=== PATIENT | female | born 1955 | race Caucasian/White ===

== ENCOUNTER 2018-07-05 10:01 | Emergency (ER) | payer BC ==
[2018-07-05 11:00] VITALS: BP 126/67
--- NOTE | 2018-07-05 11:18 | UC ---
Throat Pain/Nasal Will HPI - HPI Summary HPI Summary: 62 yo female presents with cough and post nasal drip over the last 2 days. She says that yesterday she developed fatigue, body aches, and chills - but feels better today. She has not taken anything OTC for her symptoms. Denies fever, sore throat, SOB, chest pain, abdominal pain, n/v. - History of Current Complaint Chief Complaint: UCRespiratory Stated Complaint: COUGH,CONGESTION,ACHY,HEADACHE Time Seen by Provider: 07/05/18 11:18 Hx Obtained From: Patient Pain Intensity: 0 Cough: Nonproductive - Allergies/Home Medications Allergies/Adverse Reactions: Allergies Allergy/AdvReac Type Severity Reaction Status Date / Time Penicillins Allergy Hives Verified 07/05/18 10:51 Home Medications: Home Medications Atorvastatin* [Lipitor*] 10 mg PO SEE INSTRUCTIONS 07/05/18 [History Confirmed 07/05/18] Calcium Carbonate [Calcium] 500 mg PO DAILY 07/05/18 [History Confirmed 07/05/18 ] Levothyroxine TAB* [Synthroid TAB*] 88 mcg PO DAILY 07/05/18 [History Confirmed 07/05/18] Multivitamin [Multivitamins] 1 cap PO DAILY 07/05/18 [History Confirmed 07/05/18 ] Niacin 500 mg PO DAILY 07/05/18 [History Confirmed 07/05/18] Sinclair-3 Fatty Acids/Fish Oil [Fish Oil 1,000 mg Capsule] 1 each PO DAILY [History Confirmed 07/05/18] Pantoprazole TAB (NF) [Protonix TAB (NF)] 40 mg PO DAILY 07/05/18 [History Confirmed 07/05/18] Sertraline* [Zoloft*] 50 mg PO BEDTIME 07/05/18 [History Confirmed 07/05/18] Zolpidem TAB* [Ambien TAB*] 10 mg PO BEDTIME 07/05/18 [History Confirmed ] diazePAM [Diazepam] 5 mg PO DAILY 07/05/18 [History Confirmed 07/05/18] PMH/Surg Hx/FS Hx/Imm Hx Endocrine History: Hypothyroidism, Dyslipidemia Psychological History: Anxiety - Surgical History Surgical History: None - Social History Alcohol Use: Occasionally Substance Use Type: Prescribed Smoking Status (MU): Never Smoked Tobacco Review of Systems Constitutional: Fatigue Skin: Negative Eyes: Negative ENT: Sinus Congestion, Sinus Pain/Tenderness Respiratory: Cough Cardiovascular: Negative Gastrointestinal: Negative Neurovascular: Negative Musculoskeletal: Negative Neurological: Negative Psychological: Negative All Other Systems Reviewed And Are Negative: Yes Physical Exam - Summary Physical Exam Summary: GENERAL: NAD. WDWN. No pain distress. SKIN: No rashes, sores, lesions, or open wounds. HEENT: Head: AT/NC Eyes: EOM intact. Conjunctiva clear without inflammation or discharge. Ears: Hearing grossly normal. TMs intact, no bulging, erythema, or edema. Nose: Nasal mucosa pink and moist. NTTP maxillary and frontal sinus. Throat: Posterior oropharynx without exudates, erythema, or tonsillar enlargement. Uvula midline. NECK: Supple. Nontender. No lymphadenopathy. CHEST: CTAB. No r/r/w. No accessory muscle use. Breathing comfortably and in no distress. CV: RRR. Without m/r/g. Pulses intact. Cap refill <2seconds NEURO: Alert. PSYCH: Age appropriate behavior. Triage Information Reviewed: Yes Vital Signs: Initial Vital Signs Temp 98 F 07/05/18 10:56 Pulse 72 07/05/18 10:56 Resp 18 07/05/18 10:56 BP 126/67 07/05/18 10:56 Pulse Ox 98 07/05/18 10:56 Vital Signs Reviewed: Yes Throat Pain/Nasal Course/Dx - Course Course Of Treatment: Suspect viral illness. Advised to try OTC mucinex and flonase. - Differential Dx/Diagnosis Provider Diagnoses: Viral syndrome Discharge - Sign-Out/Discharge Documenting (check all that apply): Patient Departure All imaging exams completed and their final reports reviewed: No Studies - Discharge Plan Condition: Stable Disposition: HOME Patient Education Materials: Rhinosinusitis (ED), Viral Syndrome (ED) Referrals: Kelly Whitlock MD [Primary Care Provider] - Additional Instructions: If you develop a fever, shortness of breath, chest pain, new or worsening symptoms - please call your PCP or go to the ED. 1) May try [id number] Mucinex and Delsym - Billing Disposition and Condition Condition: STABLE Disposition: Home
== END 2018-07-05 11:33 | disposition home or self-care (01) ==
LOC: UCCORT 10:01
DX: B34.9 Viral infection, unspecified (principal); R05 Cough; R09.82 Postnasal drip; R09.81 Nasal congestion; R51 Headache; E78.5 Hyperlipidemia, unspecified; E03.9 Hypothyroidism, unspecified; Z79.899 Other long term (current) drug therapy; Z88.0 Allergy status to penicillin
CPT/HCPCS: 99211; G0463

== ENCOUNTER 2018-11-18 07:26 | Emergency (ER) | payer BC, OTHER ==
[2018-11-18 07:44] VITALS: BP 148/67
--- NOTE | 2018-11-18 07:54 | UC ---
Upper Extremity HPI - HPI Summary HPI Summary: 63 year old woman comes in today with a chief complaint of left elbow pain after a fall. She was at work and slipped and fell landing on her left elbow. Did not hit her head denies any head or neck pain. The left elbow hurts more with range of motion of the elbow. No weakness or numbness. Sometimes decreased range of motion secondary to pain in the left elbow. Left upper chest also is mildly sore to palpation. Patient feels when she fell she also struck that area. Also the right ankle is mildly tender. She has no shortness of breath. the right ankle does have mild pain with ambulation. The patient denies any concern of a fractured ankle she feels it's mildly sprained. - History of Current Complaint Chief Complaint: UCUpperExtremity Stated Complaint: WC-LT ARM INJURY Time Seen by Provider: 11/18/18 07:46 Pain Intensity: 2 - Allergies/Home Medications Allergies/Adverse Reactions: Allergies Allergy/AdvReac Type Severity Reaction Status Date / Time Penicillins Allergy Hives Verified 11/18/18 07:38 Home Medications: Home Medications Ibuprofen TAB* [Advil TAB*] 400 mg PO Q6H PRN 11/18/18 [History Confirmed ] PMH/Surg Hx/FS Hx/Imm Hx Previously Healthy: Yes Endocrine History: Hypothyroidism, Dyslipidemia - Surgical History Surgical History: None - Family History Known Family History: Positive: Non-Contributory - Social History Alcohol Use: Occasionally Substance Use Type: Prescribed Smoking Status (MU): Never Smoked Tobacco Review of Systems All Other Systems Reviewed And Are Negative: Yes Constitutional: Positive: Negative Skin: Positive: Negative Eyes: Positive: Negative ENT: Positive: Negative Respiratory: Positive: Negative Cardiovascular: Positive: Negative Gastrointestinal: Positive: Negative Motor: Positive: Other - see hpi Neurovascular: Positive: Negative Musculoskeletal: Positive: Other: - see hpi Neurological: Positive: Negative Psychological: Positive: Negative Is Patient Immunocompromised?: No Physical Exam Triage Information Reviewed: Yes Appearance: Well-Appearing, No Pain Distress, Well-Nourished Vital Signs: Initial Vital Signs Temp 98.6 F 11/18/18 07:41 Pulse 64 11/18/18 07:41 Resp 16 11/18/18 07:41 BP 148/67 11/18/18 07:41 Pulse Ox 100 11/18/18 07:41 Vital Signs Reviewed: Yes Eye Exam: Normal Eyes: Positive: Conjunctiva Clear Neck exam: Normal Neck: Positive: Supple, Nontender Respiratory: Positive: Lungs clear, Normal breath sounds, No respiratory distress Cardiovascular: Positive: RRR Musculoskeletal: Positive: Other: - Patient is mildly tender to palpation diffusely at the left elbow. Elbow has full range of motion although the patient reports pain with complete flexion. Supination and pronation and extension are all normal. Patient shoulders are nontender to palpation with normal range of motion. Positive radial pulses no sensation deficits normal capillary refill fingers hands and wrists all have full range of motion and full strength. Neurological Exam: Normal Neurological: Positive: Alert, Muscle Tone Normal Psychological Exam: Normal Psychological: Positive: Age Appropriate Behavior Skin Exam: Normal Upper Extremity Course/Dx - Course Course Of Treatment: Order Information: ELBOW LEFT 3+VWS. Accession Number: [id number]. CPT: 00525. Indication: Left elbow pain after fall. 4 views of left elbow demonstrates likely radial head fracture at the neck and head. There. may be intra-articular extension. Large joint effusion is noted. IMPRESSION: Likely nondisplaced fracture of the radial head with a large joint effusion. . < Electronically signed by Basia Devine MD in [facility]> 11/18/18 0803. I discussed the x -rays with the patient. The plan is a sling to be used as needed and also encouraged some range of motion without the sling during the day. Sling was placed by nursing patient neurovascularly intact after placement of the sling. Follow-up with orthopedics. - Differential Dx/Diagnosis Provider Diagnosis: Left radial head fracture Discharge - Sign-Out/Discharge Documenting (check all that apply): Patient Departure All imaging exams completed and their final reports reviewed: Yes - Discharge Plan Condition: Stable Disposition: HOME Patient Education Materials: Elbow Fracture (ED) Referrals: Kelly Whitlock MD [Primary Care Provider] - Flash Butler MD [Medical Doctor] - Additional Instructions: FOLLOW UP WITH DR BUTLER, ORTHOPEDICS. GET RECHECKED SOONER WITH ANY WORSENING OF YOUR CONDITION OR QUESTIONS OR CONCERNS. - Billing Disposition and Condition Condition: STABLE Disposition: Home
== END 2018-11-18 08:27 | disposition home or self-care (01) ==
LOC: UCCORT 07:26
DX: S52.125A Nondisplaced fracture of head of left radius, initial encounter for closed fracture (principal); M25.571 Pain in right ankle and joints of right foot; Z88.0 Allergy status to penicillin; W01.0XXA Fall on same level from slipping, tripping and stumbling without subsequent striking against object, initial encounter; Y92.9 Unspecified place or not applicable; Y99.0 Civilian activity done for income or pay
CPT/HCPCS: 99213; G0463